=== PATIENT | male | born 1960 | race Caucasian/White ===

== ENCOUNTER 2020-03-09 15:17 | Observation (INO) | payer MEDICAID, SELFPAY ==
[2020-03-09 15:22] VITALS: BP 109/72; PULSE 100; RESP 18; TEMP 36.8; O2SAT 100; BMI 23.5
--- NOTE | 2020-03-09 15:22 | W.ED.CHESTPA ---
HPI - Chest Pain General: Chief Complaint: Chest Pain Stated Complaint: CHEST PAIN Time Seen by Provider: 03/09/20 15:19 [facility] PFSH: Social History Smoking and tobacco status: current every day smoker Course Vital Signs: Vital signs: Vital Signs Temperature 98.2 F 03/09/20 15:22 Pulse Rate 91 03/09/20 17:28 Respiratory Rate 21 H 03/09/20 17:28 Blood Pressure 107/77 03/09/20 17:28 Pulse Oximetry 97 03/09/20 17:28 MDM - Chest Pain MDM Narrative: Medical decision making narrative: 1800 -Case turned over to me at change of shift from Dr. Vo. Please see his notes for his history, physical exam and medical decision-making notes. Patient claims to me he has been having chest pain intermittently throughout the day. His symptoms lasted from just a few minutes to several minutes. He is unaware of anything that makes them better or worse and does not appear to have tried anything for them at home. He admits to smoking and meth use. Claims his last meth use was 3 days ago. The pain is described as a sharp/pressure/tightness that radiates across both shoulders and goes down his left arm. He has associated shortness of breath and diaphoresis. Currently the time of my history the patient does not have any pain. He claims to have a history of hypertension, 4 MIs with coronary artery disease, hyperlipidemia and congestive heart failure. He has 12 stents after 3-4 caths according to him. He also has a pacemaker defibrillator placed because of a 28% ejection fraction. Patient's physical exam is normal to me. I discussed with him his options as he is has 2- troponins but has a bundle branch block on his EKG. He is asking to stay in observation as he states in the past he has had heart attack show up on his last blood test before being discharged. Because of his extensive history and he has a heart score of 5 I reviewed the case with Dr. Espinoza and he agrees to admit to the hospital for further management. Lab Data: Attestation: I reviewed the patient's lab results. Labs: Lab Results 03/09/20 03/09/20 03/09/20 Range/Units 15:44 15:44 15:44 WBC 4.7 (4.0-10.0) 10^3/ uL RBC 4.38 (4.1-5.3) 10^6/u L Hgb 11.3 L (11.7-16.6) g/dL Hct 38.3 L (42.0-52.0) % MCV 87.4 (80-94) fL MCH 25.8 L (28.0-34.0) pg MCHC 29.5 L (30.0-36.0) g/dL RDW 18.5 H (12.1-15.1) % Plt Count 288 (130-400) 10^3/c mm MPV 11.1 H (7.4-10.4) fL Neut % (Auto) 46.8 % Lymph % (Auto) 28.0 % Meriwether % (Auto) 17.0 % Eos % (Auto) 5.9 % Baso % (Auto) 2.1 % Neut # (Auto) 2.2 (1.8-7.7) 10^3/u L Lymph # (Auto) 1.3 (0.8-4.8) 10^3/u L Meriwether # (Auto) 0.8 (0.2-0.9) 10^3/u L Eos # (Auto) 0.3 (0.0-0.8) 10^3/u L Baso # (Auto) 0.1 (0.0-0.1) 10^3/u L Nucleated RBC % (a uto) 0 % Nucleated RBCs # 0.0 /100WBC Sodium 138 (136-145) mmol/L Potassium 4.6 (3.5-5.1) mmol/L Chloride 102 (98-107) mmol/L Carbon Dioxide 22 (22-29) mmol/L Anion Gap 18.6 (5-19) BUN 7 (6-20) mg/dL Creatinine 0.9 (0.7-1.2) mg/dL GFR Calculation 86.4 L (90-130) mL/min Glucose 94 (65-115) mg/dL Calculated Osmolal ity 282 L (285-295) mOsm/k g Calcium 9.9 (8.5-10.5) mg/dL Total Bilirubin 0.2 (0.15-1.2) mg/dL AST 14 (0-40) U/L ALT 9 (0-41) U/L Alkaline Phosphata se 111 (40-130) IU/L Troponin T Baselin e 12 (0-15) ng/mL Troponin T 120 Min manzanita (0-15) ng/mL Delta Troponin T (0-10) ABS# NT-Pro-B Natriuret Pep 431 H (0-125) pg/mL Total Protein 7.1 (6.6-8.7) g/dL Albumin 4.4 (3.5-5.2) g/dL Globulin 2.7 (1.3-4.6) g/dL 03/09/20 Range/Units 17:52 WBC (4.0-10.0) 10^3/ uL RBC (4.1-5.3) 10^6/u L Hgb (11.7-16.6) g/dL Hct (42.0-52.0) % MCV (80-94) fL MCH (28.0-34.0) pg MCHC (30.0-36.0) g/dL RDW (12.1-15.1) % Plt Count (130-400) 10^3/c mm MPV (7.4-10.4) fL Neut % (Auto) % Lymph % (Auto) % Meriwether % (Auto) % Eos % (Auto) % Baso % (Auto) % Neut # (Auto) (1.8-7.7) 10^3/u L Lymph # (Auto) (0.8-4.8) 10^3/u L Meriwether # (Auto) (0.2-0.9) 10^3/u L Eos # (Auto) (0.0-0.8) 10^3/u L Baso # (Auto) (0.0-0.1) 10^3/u L Nucleated RBC % (a uto) % Nucleated RBCs # /100WBC Sodium (136-145) mmol/L Potassium (3.5-5.1) mmol/L Chloride (98-107) mmol/L Carbon Dioxide (22-29) mmol/L Anion Gap (5-19) BUN (6-20) mg/dL Creatinine (0.7-1.2) mg/dL GFR Calculation (90-130) mL/min Glucose (65-115) mg/dL Calculated Osmolal ity (285-295) mOsm/k g Calcium (8.5-10.5) mg/dL Total Bilirubin (0.15-1.2) mg/dL AST (0-40) U/L ALT (0-41) U/L Alkaline Phosphata se (40-130) IU/L Troponin T Baselin e (0-15) ng/mL Troponin T 120 Min manzanita 12.18 (0-15) ng/mL Delta Troponin T 0.18 (0-10) ABS# NT-Pro-B Natriuret Pep (0-125) pg/mL Total Protein (6.6-8.7) g/dL Albumin (3.5-5.2) g/dL Globulin (1.3-4.6) g/dL Discharge Plan Discharge Patient Disposition: Placed in Observation Clinical Impression: Chest pain Condition: Stable Prescriptions: No Action Plavix 75 mg Tablet 75 mg PO DAILY RF: 0 aspirin 81 mg Tablet,Chewable 81 mg PO DAILY RF: 0 Crestor 40 mg Tablet 40 mg PO DAILY RF: 0 metoprolol tartrate 25 mg Tablet 12.5 mg PO DAILY RF: 0 Lyrica 300 mg Capsule 300 mg PO BID RF: 0 Sign Out Sign Out Data: Patient Sign Out occurred on 03/09/20 at 18:28. Patient's care was discussed, and care was transferred from to Amira Gasca. Coding Level of Care Code ED Floorworker for Nova Martinez
--- NOTE | 2020-03-09 15:23 | ECG_ITS ---
Measurements Intervals [place] Rate: 99 P: 54 ID: 150 QRS: -1 QRSD: 144 T: 175 QT: 389 QTc: 500 SINUS RHYTHM WITH FREQUENT VENTRICULAR PREMATURE COMPLEXES POSSIBLE LEFT ATRIAL ENLARGEMENT [-0.1mV P WAVE IN V1/V2] LEFT BUNDLE BRANCH BLOCK [120+ ms QRS DURATION, 80+ ms Q/S IN V1/V2, 85+ ms R IN I/aVL/V5/V6] No previous ECG available for comparison Electronically Signed On 03-10-2020 8:00:08 CDT by Moshe Martínez M.D. [email or web address]
--- NOTE | 2020-03-09 15:23 | XR_ITS ---
WS: [id number] PORTABLE CHEST HISTORY: chest pain COMPARISON: None available. Single lead defibrillator LEFT subclavian. Lungs are clear and well expanded. No pleural effusion or pneumothorax. Cardiac size: Normal. Mediastinum/Aorta: Normal mediastinum. No osseous abnormality seen. Curvilinear lucency associated with the RIGHT diaphragm. XR/XR chest 1V portable [id number] IMPRESSION: 1. No pneumonia. 2. Curvilinear lucency adjacent to the RIGHT diaphragm. If patient is having a bdominal pain consider free air. CT evaluation of the abdomen may be necessary.
[2020-03-09 15:36] VITALS: BP 100/62; PULSE 102; RESP 18; O2SAT 99
[2020-03-09 16:06] LABS: Basophils # 0.1 10^3/uL (0.0-0.1); Basophils % 2.1 %; Eosinophils # 0.3 10^3/uL (0.0-0.8); Eosinophils % 5.9 %; Hematocrit 38.3 % (42.0-52.0); Hemoglobin 11.3 g/dL (11.7-16.6); Lymphocytes # 1.3 10^3/uL (0.8-4.8); Mean Corpuscular HGB Conc 29.5 g/dL (30.0-36.0); Mean Corpuscular Hemoglobin 25.8 pg (28.0-34.0); Mean Corpuscular Volume 87.4 fL (80-94); Mean Platelet Volume 11.1 fL (7.4-10.4); Monocytes # 0.8 10^3/uL (0.2-0.9); Neutrophils # 2.2 10^3/uL (1.8-7.7); Neutrophils % 46.8 %; Nucleated Red Blood Cells % 0 %; Platelet Count 288 10^3/cmm (130-400); Red Blood Count 4.38 10^6/uL (4.1-5.3); Red Cell Distribution Width 18.5 % (12.1-15.1); White Blood Count 4.7 10^3/uL (4.0-10.0)
[2020-03-09 16:28] LABS: Troponin(5th) Baseline 12 ng/mL (0-15)
[2020-03-09 16:56] LABS: Alanine Aminotransferase 9 U/L (0-41); Albumin Level 4.4 g/dL (3.5-5.2); Alkaline Phosphatase 111 IU/L (40-130); Anion Gap 18.6 (5-19); Aspartate Amino Transferase 14 U/L (0-40); Blood Urea Nitrogen 7 mg/dL (6-20); Calcium 9.9 mg/dL (8.5-10.5); Carbon Dioxide 22 mmol/L (22-29); Chloride 102 mmol/L (98-107); Creatinine Clr Calc Pharmacy 83.5945; Globulin 2.7 g/dL (1.3-4.6); Glomerular Filtration Rate 86.4 mL/min (90-130); Glucose 94 mg/dL (65-115); NT Pro B Type Natriuretic Pept 431 pg/mL (0-125); Osmolality Calculated 282 mOsm/kg (285-295); Potassium 4.6 mmol/L (3.5-5.1); Sodium 138 mmol/L (136-145); Total Bilirubin 0.2 mg/dL (0.15-1.2); Total Protein 7.1 g/dL (6.6-8.7)
[2020-03-09] MEDS: LORazepam 2 mg/mL INJ 1 mL IVP (17:19)
--- NOTE | 2020-03-09 17:23 | ECG_ITS ---
Measurements Intervals [place] Rate: 93 P: 61 NM: 151 QRS: -2 QRSD: 150 T: 171 QT: 400 QTc: 499 SINUS RHYTHM WITH FREQUENT VENTRICULAR PREMATURE COMPLEXES POSSIBLE LEFT ATRIAL ENLARGEMENT [-0.1mV P WAVE IN V1/V2] LEFT BUNDLE BRANCH BLOCK [120+ ms QRS DURATION, 80+ ms Q/S IN V1/V2, 85+ ms R IN I/aVL/V5/V6] No previous ECG available for comparison Electronically Signed On 03-10-2020 8:02:29 CDT by Moshe Martínez M.D. [email or web address]
[2020-03-09 17:28] VITALS: BP 107/77; PULSE 91; RESP 21; O2SAT 97
[2020-03-09 18:34] LABS: Troponin 5 2HR 12.18 ng/mL (0-15); Troponin 5 2HR Delta 0.18 ABS# (0-10)
--- NOTE | 2020-03-09 19:09 | P.HP_ITS ---
Providers/Chief Complaint Chief Complaint: CHEST PAIN History of Present Illness Niall Bang is a 58 year old male who carries history of established coronary disease, 12 stents, 4 MIs, currently using IV methamphetamine, not optimized on heart failure reduced ejection fraction medications, patient is stating his EF is 25-28% came in today after experiencing chest pain. Patient is stating that he is visiting his girlfriend here, he used IV methamphetamine 3 days ago, today he was watching television in his couch when he started experiencing chest pain which was radiating towards his left arm and neck, he took 2 doses of sublingual nitroglycerin which did not relieve his pain, he came to the ER for further evaluation. He is stating chest pain is left-sided, pressure to squeezing in nature, it lasted couple of minutes. He smoking half a pack a day. He denied orthopnea, PND, fever, shortness of breath nausea or vomiting. Patient is stating that his last TX was in 2014 (as per the patient he was in [facility]) Diagnostics in ER revealed systolic blood pressure ranging 100 to 110 mmHg, Nitro-Bid paste was removed, troponin not significantly high, EKG revealed mu ltiple unifocal PVCs without ischemic or infarctive changes, right bundle branch block, prolonged QTC 500 Review of Systems Const: Denies: fever, chills or body aches Eyes: Denies: change in vision or blurry vision ENMT: Denies: throat pain or uvular edema Card: Reports: chest pain and shortness of breath on exertion; Denies: palpitations, irregular heart rhythm, edema, swelling of feet/ankles, syncope, shortness of breath when lying down or leg pain with exertion Resp: Denies: shortness of breath GI: Denies: abdominal pain, nausea, vomiting or coffee grounds in vomit : Denies: flank pain, difficulty urinating or urinary frequency Musc: Reports: back pain; Denies: neck pain Skin/Breast: Denies: rash Neuro: Denies: headache Psych: Reports: anxiety and mood swings Endo: Denies: excessive urination Eddie/Lymph: Denies: easy bruising All/Imm: Denies: hives Medications/Allergies Home Medications Medication Instructions Recorded Confirmed Last Taken Type aspirin 81 mg PO DAILY 03/09/20 03/09/20 03/08/20 History clopidogrel [Plavix] 75 mg PO DAILY 03/09/20 03/09/20 03/08/20 History metoprolol tartrate 12.5 mg PO DAILY 03/09/20 03/09/20 03/08/20 History pregabalin [Lyrica] 300 mg PO BID 03/09/20 03/09/20 03/08/20 History rosuvastatin [Crestor] 40 mg PO DAILY 03/09/20 03/09/20 03/08/20 History Allergies Allergy/AdvReac Type Severity Reaction Status Date / Time albuterol Allergy ADR/ALGY-Pa Verified 03/09/20 15:32 lpitations ibuprofen Allergy ADR-Gastrointestinal Verified 03/09/20 15:32 Upset PFSH Acute PFSH: Medical History Cardiac defibrillator in place Coronary artery disease Myocardial infarction Smoker TIA (transient ischemic attack) Family History Denies family history of CAD (coronary artery disease) Clotting disorder Chronic kidney disease (CKD) Social History (Updated 03/09/20 @ 20:32 by Gilberto Navarrete MD) Smoking and tobacco status: heavy tobacco smoker cigarettes [ Other cigarette details: Half a pack a day for last 40 years ] Alcohol intake: current Alcohol intake frequency: few times a month Substance/Drug Use: current Substance/Drug use type: Methamphetamine Other substance/drug use details: IV drug abuse Household members: significant other Housing: House Vitals/I&O/Wt Last Vital Signs Temp 98.2 F 03/09/20 15:22 Pulse 91 03/09/20 17:28 Resp 21 H 03/09/20 17:28 BP 107/77 03/09/20 17:28 Pulse Ox 97 03/09/20 17:28 Weight last 48 hrs Weight 68.039 kg Physical Exam Narrative: EXAM NARRATIVE: Middle-age man seems very irritable and agitated not really cooperating for the interview and examination Nitro-Bid paste was removed because of low blood pressure S1, S2 heart rate 86-90 Abdomen soft nontender nondistended Lung clear to auscultation No lower extremity edema Unkempt appearance EOMI, PERRLA Nonfocal neurological exam Irritable agitated mood Data : 03/09/20 15:44 03/09/20 15:44 A&P Assessment and plan (1) Unstable angina: Status: Acute (2) Polysubstance abuse: Status: Acute (3) Stented coronary artery: Status: Acute Additional A&P Information Unstable angina with established coronary disease No active chest pain, no significant rise in troponin, EKG does not show ischemic or infarct changes however reveals QTC prolongation, right bundle branch block, I would optimize his heart failure reduce ejection fraction medications, would add low-dose lisinopril and considering history of methamphetamine would add Imdur, patient is stating after taking nitro his blood pressure drops quickly, I would add metoprolol succinate, lisinopril and Imdur Metoprolol to be given after stress test in the morning Lexiscan stress test Echo We will request records Polysubstance abuse Endorsing to IV methamphetamine, he is not going to quit, Last dose was 3 days ago Half a pack a day smoker: Not ready to quit counseled on benefits on smoking cessation and avoiding drugs Heart failure ejection fraction no acute exacerbation As per the patient EF is 25 to 28%, has AICD, no recent discharge We will get AICD interrogation Full code N.p.o. after midnight Lexiscan stress test in the morning DVT prophylaxis: Lovenox Attestations Medical Necessity Statement*: Anticipating discharge in less than 48 hours if stress test comes back negative, currently needs Lexiscan stress test because of established coronary disease and active chest pain due to drug abuse Time Spent in Patient Care: 40 Coding Level of Care Code Acute Moss Bleacher for Nova Martinez Diagnoses Unstable angina I20.0 Polysubstance abuse F19.10 Stented coronary artery Z95.5
[2020-03-09] MEDS: nitroglycerin 1 gm/inch oint Pkt 1 INCH TOPICAL (19:22)
[2020-03-09] MEDS: aspirin 325 mg Tablet PO (19:22)
--- NOTE | 2020-03-09 19:30 | PC.NURSE ---
Admitted from ED with complaint of Chest Pain. Patient up ambulating in [place]on. Upset because he can't go out and smoke. Patient informed this nurse that he is to have a stress test in am. Refusing Lovenox and Lyrica. I'm not taking that shot and I take 300mg Lyrica twice a day and not 100mg....so you need to do something with that. Dr. Navarrete notified. Lyrica increased to 300mg per patient's request;however, patient refusing it at this time. Will monitor.
[2020-03-09 20:00] VITALS: BP 127/74; PULSE 95; RESP 21; TEMP 36.8; O2SAT 96
--- NOTE | 2020-03-09 20:18 | ECG_ITS ---
NAME OF STUDY: LEXISCAN SESTAMIBI STRESS TEST INDICATION: Meth Abuse and Chest Pain, history of CHF and frequent PVCs PROCEDURE: At the baseline, the blood pressure was 119/56 mmHg, oxygen saturation 97% with a heart rate of 83 bpm. The electrocardiogram showed sinus rhythm with frequent PVCs. Normal axis. left bundle branch block. The Lexiscan was infused over a period of 20 seconds. A total of 0.4 milligrams of Lexiscan was infused. The stress phase was continued for a total of 5 minutes. Heart rate at the end of the stress phase was 113 bpm, oxygen saturation 97% with a blood pressure 109/56 mmHg. The EKG at the peak infusion revealed no significant changes. Sestamibi was injected 20 seconds after the Lexiscan infusion. Blood pressure at the end of the recovery phase was 129/84 mmHg with a heart rate of 111 beats per minute and oxygen saturation 97%. CONCLUSION: 1. Uninterpretable EKG with LexiScan infusion given baseline left bundle branch block. 2. No LexiScan induced chest pain or cardiac arrhythmia. 3. Normal blood pressure and heart rate response. 4. Sestamibi/sestamibi perfusion scan pending; see separate report. Electronically Signed On 03-10-2020 13:04:56 CDT by Corrine Uribe M.D. [email or web address]
[2020-03-09 20:46] LABS: Magnesium 2.5 mg/dL (1.7-2.3)
[2020-03-09 23:08] LABS: Amphetamines Screen Urine Positive (Negative); Barbiturates Screen Urine Negative (Negative); Benzodiazepines Screen Urine Negative (Negative); Cocaine Screen Urine Negative (Negative); Opiate Screen Urine Negative (Negative); PCP Screen Urine Negative (Negative); THC Screen Urine Negative (Negative)
[2020-03-10] VITALS (7 sets, daily range): BP systolic 105–109; BP diastolic 61–74; PULSE 68–108; RESP 16–19; TEMP 36.3–36.7; O2SAT 90–98
--- NOTE | 2020-03-10 00:30 | PC.NURSE ---
Would really like to be left alone. No s/s of distress noted at this time. Will monitor.
--- NOTE | 2020-03-10 01:09 | PC.NURSE ---
Patient resting with eyes closed. Respirations even and unlabored. Did not awaken. Will monitor.
--- NOTE | 2020-03-10 03:38 | PC.NURSE ---
Patient refused to have labs drawn this am. Staff explained the need to have blood drawn, but patient still refused. Will monitor.
--- NOTE | 2020-03-10 03:42 | PC.NURSE ---
Dr. Navarrete notified of patient's refusal of lab draw. No new orders received at this time. Will monitor.
--- NOTE | 2020-03-10 05:47 | PC.NURSE ---
Patient awakened for VS and assessment at this time. Denies complaints at this time. States, That ativan they gave me in the ER really made me sleep...I think I've been up a couple of times tonight to the bathroom.....I'm gonna go back to sleep now. Will monitor.
--- NOTE | 2020-03-10 06:52 | PC.NURSE ---
Patient awakened upon nurse entering room. Gave ice water to patient and asked patient to please drink the water since he has been injected for his stress test. Patient states, Just sit it right there and I'll drink it. This nurse left the ice water sitting on patient's overbed table.
--- NOTE | 2020-03-10 08:08 | PM.DCS ---
Discharge Providers Date of Admission: 03/09/20 19:14 Date of Discharge: March 10, 2020 Attending Provider at Admission: Gilberto Navarrete MD Attending Provider at Discharge: Bridgett Frazier MD Diagnoses at Discharge Discharge Diagnosis (1) Unstable angina: Status: Acute Problem details: -Likely exacerbated by recent IV methamphetamine use with underlying strong cardiac history -Nuclear stress testing is negative for acute coronary ischemia, noted large size perfusion abnormality consistent with prior PR in RCA/circumflex artery territory -Noted troponins with negative delta -Echo reported as EF of 30%, global hypokinesis, moderate MR, mild AR, trace to mild TR, trace MT, mild pulmonary hypertension; s/p AICD -Vital signs stable, currently chest pain-free -Medication optimized with addition of ALBAN inhibitor and long-acting nitrate; continue statin, Plavix, aspirin, beta-keshia (2) Polysubstance abuse: Status: Chronic Problem details: -IV methamphetamine use, unwilling to quit at this time (3) Stented coronary artery: Status: Chronic Problem details: -Has known history of CAD, status post multiple stents Other Information Additional DC diagnoses/information: -Chronic smoker -Chronic systolic CHF; Echo as noted above, currently clinically compensated. Reason for Visit Reason for Visit: Reason For Visit: CHEST PAIN Hospital Course Hospital Course: Patient was admitted to the medical surgical floor and placed on telemetry monitoring. Secondary to his underlying cardiac history as well as presenting symptoms he had repeat echo done as well as nuclear stress testing as noted above with stress test reported as negative. He has been hemodynamically stable, afebrile, on room air throughout his hospital stay. Medical management was optimized with addition of long-acting nitrate and ALBAN inhibitor. Patient admits to IV methamphetamine use as well as chronic smoking both of which he is unwilling to quit at this time. These continue to be significant risk factors for further cardiac events. Discharge Summary: -Patient to follow up with primary care provider within 1 week -Patient to continue to follow up with cardiology Physical Exam Const: COMMON NORMALS: no apparent distress and oriented x3 GENERAL APPEARANCE: cooperative and comfortable ORIENTATION/CONSCIOUSNESS: Yes awake HENMT: COMMON NORMALS: normocephalic, head/scalp atraumatic, hearing grossly normal bilaterally and moist oral mucous membranes HEAD & SCALP: normocephalic and atraumatic Eye: COMMON NORMALS: PERRL, EOMs intact bilaterally and conjunctivae normal CONJUNCTIVA: Yes conjunctivae normal PUPIL: Yes PERRL Neck/C-Spine: COMMON NORMALS: full ROM GENERAL: Yes normal visual inspection and Yes trachea midline Resp: COMMON NORMALS: normal respiratory effort, no retractions, no use of accessory muscles and clear to auscultation bilaterally EFFORT & INSPECTION: Yes able to speak in complete sentences, Yes symmetric chest movement and No tachypneic AUSCULTATION: clear to auscultation bilaterally Cardio: COMMON NORMALS: regular rate, regular rhythm, S1 normal heart sound, S2 normal heart sound and no murmurs RATE: regular rate RHYTHM: regular rhythm HEART SOUNDS: S1 normal and S2 normal GI: COMMON NORMALS: normal to inspection, nondistended, normoactive bowel sounds, soft to palpation and non-tender PALPATION: Yes soft Extremity: COMMON NORMALS: normal to inspection, full ROM and no clubbing, cyanosis or edema; negative for no pedal edema Neuro: COMMON NORMALS: oriented x3, moves all extremities, no focal motor deficits, no sensory deficits noted and gait normal Psych: COMMON NORMALS: mental status grossly normal, thought process normal, cooperative, affect normal and speech normal SPEECH: Yes normal speech THOUGHT PROCESS: normal thought process Skin: COMMON NORMALS: no rashes or lesions noted, no jaundice, no petechiae and no mottling GENERAL SKIN EXAM: no rashes or lesions noted Discharge Data Data Completed and Pending: Pending at discharge Category Date Time Status Sestamibi Stress Test Request Shana ne Exams 03/09/20 20:18 Ordered XR chest 1V ceci ble [id number] Stat Exams 03/09/20 15:23 Taken BMP [Basic Metabo lic Panel] AM LABS Lab 03/10/20 04:00 Ordered CBC Auto Diff [Co mplete Blood Count w/Auto] AM LABS Lab 03/10/20 04:00 Ordered Troponin(5th) 6 h our. Timed Lab 03/09/20 21:44 Ordered NM manuel perf SPECT r/s* [id number] Routin e Nuc Med 03/10/20 20:18 Ordered CV echo complete* [id number] Routine Ultrasound 03/10/20 20:18 Ordered Labs from last 24 hours 03/09/20 03/09/20 03/09/20 20:30 17:52 17:52 WBC RBC Hgb Hct MCV MCH MCHC RDW Plt Count MPV Neut % (Auto) Lymph % (Auto) [place] % (Auto) Eos % (Auto) Baso % (Auto) Neut # (Auto) Lymph # (Auto) [place] # (Auto) Eos # (Auto) Baso # (Auto) Nucleated RBC % (a uto) Nucleated RBCs # Sodium Potassium Chloride Carbon Dioxide Anion Gap BUN Creatinine GFR Calculation Glucose Calculated Osmolal ity Calcium Magnesium 2.5 H Total Bilirubin AST ALT Alkaline Phosphata se Troponin T Baselin e Troponin T 120 Min edson 12.18 Delta Troponin T 0.18 NT-Pro-B Natriuret Pep Total Protein Albumin Globulin Urine Opiates Scre en Negative Ur Barbiturates Sc reen Negative Ur Phencyclidine S crn Negative Ur Amphetamines Sc reen Positive H U Benzodiazepines Scrn Negative Urine Cocaine Scre en Negative U Marijuana (THC) Screen Negative 03/09/20 03/09/20 03/09/20 15:44 15:44 15:44 WBC 4.7 RBC 4.38 Hgb 11.3 L Hct 38.3 L MCV 87.4 MCH 25.8 L MCHC 29.5 L RDW 18.5 H Plt Count 288 MPV 11.1 H Neut % (Auto) 46.8 Lymph % (Auto) 28.0 [place] % (Auto) 17.0 Eos % (Auto) 5.9 Baso % (Auto) 2.1 Neut # (Auto) 2.2 Lymph # (Auto) 1.3 [place] # (Auto) 0.8 Eos # (Auto) 0.3 Baso # (Auto) 0.1 Nucleated RBC % (a uto) 0 Nucleated RBCs # 0.0 Sodium 138 Potassium 4.6 Chloride 102 Carbon Dioxide 22 Anion Gap 18.6 BUN 7 Creatinine 0.9 GFR Calculation 86.4 L Glucose 94 Calculated Osmolal ity 282 L Calcium 9.9 Magnesium Total Bilirubin 0.2 AST 14 ALT 9 Alkaline Phosphata se 111 Troponin T Baselin e 12 Troponin T 120 Min edson Delta Troponin T NT-Pro-B Natriuret Pep 431 H Total Protein 7.1 Albumin 4.4 Globulin 2.7 Urine Opiates Scre en Ur Barbiturates Sc reen Ur Phencyclidine S crn Ur Amphetamines Sc reen U Benzodiazepines Scrn Urine Cocaine Scre en U Marijuana (THC) Screen Vitals: Last Vital Signs Temp 97.8 F 03/10/20 07:15 Pulse 68 03/10/20 07:15 Resp 18 03/10/20 07:15 BP 109/74 03/10/20 04:00 Pulse Ox 97 03/10/20 07:15 Discharge Plan Discharge Patient Disposition: Home, Self-Care Condition: Stable Prescriptions: New isosorbide mononitrate 30 mg Tablet Extended Release 24 Hr 30 mg PO DAILY 30 Days Qty: 30 RF: 0 lisinopril 5 mg Tablet 5 mg PO DAILY 30 Days Qty: 30 RF: 0 Continued Plavix 75 mg Tablet 75 mg PO DAILY RF: 0 aspirin 81 mg Tablet,Chewable 81 mg PO DAILY RF: 0 Crestor 40 mg Tablet 40 mg PO DAILY RF: 0 metoprolol tartrate 25 mg Tablet 12.5 mg PO DAILY RF: 0 Lyrica 300 mg Capsule 300 mg PO BID RF: 0 Discharge Orders: Discharge Order (Routine); Ordered 03/10/20 Ordered By: Bridgett Frazier Referrals: Morris Winslow MD [Hospitalist] - 4-7 days (Post hospital discharge follow up. ) Discharge Diet: Cardiac Discharge Activity: Resume usual activity Discharge Attestations Time Spent in Discharge Care*: greater than 30 min Specific Discharge Activities: Specific discharge activities: educating patient, documenting/other paperwork and evaluating patient/reviewing data Status at Discharge: Cognitive status at discharge: cognitively intact, Behavioral status at discharge: cooperative, Functional status at discharge: independent ambulation Overall status at discharge: patient is back to baseline Quality Metrics Clinical Quality Measures During this hospital stay, did patient experience: None Coding Level of Care Code Acute Senior Information Security Architect for g Fwd Exam Comprehensive Diagnoses Unstable angina I20.0 Polysubstance abuse F19.10 Stented coronary artery Z95.5
[2020-03-10] MEDS: regadenoson 0.4 Mg/5 ml Syringe IVP (08:50)
[2020-03-10] MEDS: clopidogrel 75 mg Tablet PO (10:28)
[2020-03-10] MEDS: pregabalin 150 mg Capsule 300 MG PO (10:28)
[2020-03-10] MEDS: aspirin 81 mg Chew Tablet PO (10:28)
--- NOTE | 2020-03-10 10:31 | PC.NURSE ---
dr bridges notified of pt refusing to take imdur, prinivil, and lipitor.
--- NOTE | 2020-03-10 13:28 | PC.SOCIAL ---
Called by [facility] certified legal secretary specialist indicating that pt needs a follow up appt with Dr Winslow. Knowing that pt is from [facility], He said he will only be here in [place], [place] for a couple days & refuses for a follow up appointment to be made. Pt said he will follow up with his doctor on his own. He just wants a ride to [place], to his girlfriends. Address provided to . he said he just wants out of here.
--- NOTE | 2020-03-10 13:43 | PC.SOCIAL ---
A [employer] ride has been setup for pt. The time frame is from now till 16:45. Trip #[id number]. Notified pt care nurse Jelena. She said she will let the pt know.
--- NOTE | 2020-03-10 13:46 | NUR.SHIFT ---
pt was given discharge instructions. pt kept interuppting nurse, but verbalized an understanding. pt took paper prescriptions and wadded them up and threw them in the trash stating, I'm not taking those and they won't listen to me about it! nurse educated pt on the need to take the prescribed medications and pt was resistant to learning or listening. pt educated on the need for a follow up stating, I'm not doing it here my doctor is in [place]. pt instructed that it was a good idea to make a follow up with PCP and garland maker as soon as he could for a hospital follow up. pt verbalized an understanding.
--- NOTE | 2020-03-10 16:42 | NUR.SHIFT ---
pt came to nurses station telling this nurse to get ready to take him downstairs to his ride. nurse explained that we had to wait until the ride to call us and let us know when they are here. pt raised his voice and said, Well I can go down there and wait for them to get here. this nurse tried explaining that we needed to wait and pt stomped off to his room stating I can go down there if I want. will continue to monitor.
--- NOTE | 2020-03-10 20:18 | USCV_ITS ---
Niall Bang Age: 59 Gender: M : 1960 Exam Date: 03/10/2020 11:21 Ordering Phys: Gilberto Navarrete MD Technologist: Kwadwo Zapata [place] [facility] [place]: CHRST PAIN HX HEART DISEASE BP: 134 / 68 HR: 103 Rhythm: Sinus Technical Quality: Fair MEASUREMENTS (Male / Female) Normal Values 2D ECHO LV Diastolic Diameter PLAX 5.4 cm 4.2 - 5.9 / 3.9 - 5.3 cm LV Systolic Diameter PLAX 4.5 cm IVS Diastolic Thickness 0.8 cm 0.6 - 1.0 / 0.6 - 0.9 cm IVS Systolic Thickness 1.4 cm LVPW Diastolic Thickness 1.2 cm 0.6 - 1.0 / 0.6 - 0.9 cm LVPW Systolic Thickness 1.2 cm LVOT Diameter 2.1 cm LV Ejection Fraction 2D Teich 33.1 % LV Ejection Fraction MOD 2C 52.4 % LV Ejection Fraction 2C AL 52.6 % LA Diameter 3.8 cm LA Width 4.3 cm LA Height 4.9 cm RA Width 3.7 cm RA Height 3.7 cm Aorta at Sinotubular Diameter 2.5 cm M-MODE LV Diastolic Diameter MM 5.0 cm 4.2 - 5.9 / 3.9 - 5.3 cm LV Systolic Diameter MM 4.2 cm LV Ejection Fraction MM Teich 34.7 % IVS Diastolic Thickness MM 1.2 cm 0.6 - 1.0 / 0.6 - 0.9 cm IVS Systolic Thickness MM 1.2 cm LVPW Diastolic Thickness MM 1.1 cm 0.6 - 1.0 / 0.6 - 0.9 cm LVPW Systolic Thickness MM 1.6 cm RV Diastolic Diameter MM 1.0 cm Aortic Annulus Diameter 3.0 cm LA Ao Ratio MM 1.3 MV E Point Septal Separation 3.6 cm DOPPLER AV Peak Velocity 155.0 cm/s LVOT Peak Velocity 106.0 cm/s AV Area Cont Eq vti 2.2 cm squared AV Area Cont Eq pk 2.3 cm squared MV Area PHT 6.3 cm squared Mitral E to A Ratio 0.8 MV E' Velocity 11.0 cm/s Mitral E to MV E' Ratio 10.3 Mitral E to LV E' Lateral Ratio 8.2 Mitral E to LV E' Septal Ratio 13.8 TR Peak Velocity 314.0 cm/s TR Peak Gradient 39.4 mmHg Right Atrial Pressure 3.0 mmHg Pulmonary Artery Systolic Pressu 42.4 mmHg FINDINGS Left Ventricle Normal left ventricular cavity size. Moderately to severely decreased left ventricular systolic function. Left ventricular ejection fraction is estimated at 30%. Global hypokinesis. Abnormal septal motion consistent with conduction abnormality. Right Ventricle Normal right ventricular size and systolic function. Right ventricular systolic pressure 42.4 mmHg. ICD wire visualized in the right ventricle. Right Atrium Normal right atrial size. Catheter/pacemaker wire in the right atrial cavity. Left Atrium Mildly increased left atrial size. Mitral Valve Moderately thickened mitral valve. No mitral valve stenosis. Moderate mitral valve regurgitation. Aortic Valve Structurally normal trileaflet aortic valve. No aortic valve stenosis. Mild aortic valve regurgitation. Tricuspid Valve Structurally normal tricuspid valve. Trace to mild tricuspid valve regurgitation. Pulmonic Valve Pulmonic valve not well visualized. Trace pulmonary valve regurgitation. Pericardium No pericardial effusion. Aorta Aorta not well visualized. CONCLUSIONS 1. Normal left ventricular cavity size. Moderately to severely decreased left ventricular systolic function. Left ventricular ejection fraction is estimated at 30%. Global hypokinesis. 2. Normal right ventricular size and systolic function. 3. Mild aortic valve regurgitation. 4. Moderate mitral valve regurgitation. 5. Mild pulmonary hypertension with pulmonary artery pressure estimated at 42 mmHg. 6. There are no prior studies to compare. Frequent ectopy noted throughout the study. Corrine Uribe MD (Electronically Signed) Final Date: 10 March 2020 12:49 S
--- NOTE | 2020-03-10 20:18 | NMCV_ITS ---
NM manuel perf SPECT r/s* [id number] Niall Bang Age: 59 Gender: M : 1960 Exam Date: 03/10/2020 07:11 Ordering Phys: Gilberto Navarrete MD Technologist: KADEEM Paez Exam Location: [facility] [place] Indications: Chest pain STRESS TEST Please see separate stress test report in [facility] for full findings IMAGE PROTOCOL Rest/Stress 1 Lexiscan Day Radiopharmaceutical Dose (mCi) Administration Site Administered by Rest: Tc-99m 28.4 IV KADEEM Paez Sestamibi Stress:Tc-99m 9.2 IV KADEEM Paez Sestamibi Rest: 10-Mar-2020 60 Discovery 630 Stress: 10-Mar-2020 45 Discovery 630 0.4mg Lexiscan. Images obtained in supine and prone position. SPECT RESULTS Technical Quality: Good Raw Data Analysis: Subdiaphragmatic activity Image Corrections: Patient motion artifact - partial motion correction applied to stress supine and rest Summed Stress Score: 17 Summed Rest Score: 24 Summed Difference Score: 1 PERFUSION FINDINGS Large size perfusion abnormality of moderate to severe severity of entire inferior, basal to mid inferolateral and apical walter on rest and stress images. There is subtle improvement in tracer uptake in inferior wall on prone stress images. FUNCTIONAL RESULTS (calculated via Gated SPECT) TID: 1.15 FUNCTIONAL FINDINGS: Study was not gated because of frequent ectopy. Transient Ischemia Dilatation of 1.1. IMPRESSIONS 1. Large sized perfusion abnormality of moderate to severe severity of entire inferior, basal to mid inferolateral and apical walter. There is subtle improvment in tracer uptake in inferior wall on prone stress images. 2. This may be suggestive of old myocardial infarction in right coronary artery/circumflex artery territory or attenuation artifact. 3. No coronary ischemia based on the study. 4. No prior similar studies to compare. Corrine Uribe MD (Electronically Signed) Final Date: 10 March 2020 12:58 S
== END 2020-03-10 16:58 | disposition home or self-care (01) ==
LOC: ER 19:24 → MEDSURG 19:30
PROVIDERS: Family Medicine; Admitting Provider Internal Medicine; Emergency Provider Emergency Medicine; PCP Internal Medicine; Visit Provider Family Medicine
DX: I25.110 Atherosclerotic heart disease of native coronary artery with unstable angina pectoris (principal); F19.10 Other psychoactive substance abuse, uncomplicated; Z95.5 Presence of coronary angioplasty implant and graft; I25.2 Old myocardial infarction; Z79.82 Long term (current) use of aspirin; Z86.73 Personal history of transient ischemic attack (TIA), and cerebral infarction without residual deficits; F17.210 Nicotine dependence, cigarettes, uncomplicated; I50.22 Chronic systolic (congestive) heart failure; Z79.02 Long term (current) use of antithrombotics/antiplatelets
CPT/HCPCS: 12345; 36415; 71045; 78452; 80053; 80306; 83735; 83880; 84484; 85025; 93005; 93017; 93306; 96374; 96375; 99283; 99285; A9500; G0378; J2060; J2785